=== PATIENT | male | born 1955 | race Caucasian/White ===

== ENCOUNTER 2021-05-01 22:29 | Emergency (ER) | payer MEDICAID ==
[~2021-05-01] VITALS: Ht 177.8 cm; Wt 79.0 kg
[2021-05-02] MEDS ORDERED: SODIUM CHLORIDE 0.9% 1,000 ML IV ONE (01:45)
[2021-05-02 02:35] LABS: CLARITY URINE TURBID (CLEAR); COLOR URINE RED (YELLOW); KETONES URINE NEGATIVE (NEGATIVE); LEUKOCYTE ESTERASE URINE 2+ (NEGATIVE); NITRITE URINE POSITIVE (NEGATIVE); OCCULT BLOOD URINE 2+ (NEGATIVE); PH URINE 8.5 (4.5-8.0); PROTEIN URINE 2+ (NEGATIVE); SPECIFIC GRAVITY URINE 1.018 (1.005-1.030)
[2021-05-02 02:52] LABS: BASOPHILS % 0.5 % (0.0-2.0); EOSINOPHILS % 0.8 % (0.0-5.0); HEMATOCRIT. 35.4 % (42.0-52.0); LYMPHOCYTES % 19.7 % (20.0-50.0); MEAN CORPUSCULAR HEMOGLOBIN 32.3 pg (28.0-32.0); MEAN CORPUSCULAR VOLUME 95.5 fL (80.0-94.0); MEAN PLATELET VOLUME 7.8 fl (7.4-10.4); MONOCYTES % 6.6 % (2.0-8.0); NEUTROPHILS % 72.4 % (40.0-76.0); PLATELET 361 x1000/uL (130-400); RED CELL DISTRIBUTION WIDTH 13.3 % (11.6-14.6)
[2021-05-02 03:02] LABS: CHLORIDE 107 mEq/L (98-107)
[2021-05-02 07:55] VITALS: BP 120/71
== END 2021-05-02 07:57 ==
LOC: ER 22:29
DX: R33.9 Retention of urine, unspecified (principal); R31.9 Hematuria, unspecified; F03.90 Unspecified dementia, unspecified severity, without behavioral disturbance, psychotic disturbance, mood disturbance, and anxiety; Z87.01 Personal history of pneumonia (recurrent)
CPT/HCPCS: 36415; 80053; 81003; 85025; 96360; 99283; J7030